=== PATIENT | female | born 1960 | race Caucasian/White ===

== ENCOUNTER 2023-10-11 18:40 | Emergency (ER) | payer OTHER ==
[~2023-10-11] VITALS: Ht 149.9 cm; Wt 42.6 kg
[2023-10-11 18:49] VITALS: BP 122/61; PULSE 92; RESP 20; TEMP 98.4; O2SAT 96
[2023-10-11 19:21] LABS: APPEARANCE,URINE HAZY (CLEAR); BILIRUBIN,URINE NEGATIVE (NEGATIVE); BLOOD, URINE 3+ (NEGATIVE); COLOR,URINE YELLOW (YELLOW); LEUKOCYTE ESTERASE ,URINE 3+ (NEGATIVE); NITRITE, URINE POSITIVE (NEGATIVE); PROTEIN,URINE 1+ (NEGATIVE); UGLUCOSE NEGATIVE (NEGATIVE); UROBILINOGEN,URINE 0.2 EU/dL (0.2 - 1)
[2023-10-11 19:26] LABS: BACTERIA,URINE 10-30 (MOD) /HPF (None Seen); SQUAMOUS EPITHELIAL CELL,UR 0-3 (FEW) /LPF (0-3 (FEW)); WBC,URINE 20-60 /HPF (0-5)
[2023-10-11] MEDS ORDERED: DOXY-690 PO (19:55)
[2023-10-11] MEDS ORDERED: PYR100 PO (19:55)
[2023-10-11 20:01] VITALS: BP 122/61; PULSE 92; RESP 20; TEMP 98.4; O2SAT 96
== END 2023-10-11 20:02 | disposition home or self-care (01) ==
LOC: MED 18:40
DX: N39.0 Urinary tract infection, site not specified (principal); Z86.39 Personal history of other endocrine, nutritional and metabolic disease; Z79.899 Other long term (current) drug therapy; Z88.2 Allergy status to sulfonamides; Z88.1 Allergy status to other antibiotic agents
CPT/HCPCS: 81001; 87086; 99283